=== PATIENT | male | born 1955 | race Caucasian/White ===

== ENCOUNTER → 2021-09-04 | Outpatient (CLI) | payer MEDICARE, OTHER ==
--- NOTE | 2021-09-04 14:26 | KCIC ---
EXAMINATION: MRI LEFT LOWER EXTREMITY JOINT WITHOUT INDICATIONS: Left knee pain, rupture of ACL. Hyperextended knee in February. Pain throughout, especia lly medially. TECHNIQUE: Multiplanar multisequence MRI of the left knee was obtained without contrast. COMPARISON: Left knee radiograph 08/22/2019 oh FINDINGS: MENISCI: There is a complex tear of the posterior root medial meniscus, which is blunted in appearan ce. No extrusion. The lateral meniscus is intact. LIGAMENTS: The ACL is very thickened and globular in appearance with increased in signal, most likel y mucoid degeneration. The PCL is intact. There is increased signal and small cysts in the MCL proxim ally suspicious for old injury. The LCL complex is intact. EXTENSOR MECHANISM: The quadriceps and patellar tendons are intact. Fat pads are normal. Retinacula are intact. BONES AND CARTILAGE: No acute fracture. There is marrow edema in the intercondylar notch of the femu r along the ACL attachment. Small cystic changes in the tibia at the ACL attachment. There is 7 mm la teral subluxation of the patella. There is a 1 cm deep partial-thickness cartilage defect at the lateral trochlea. There is superficial or deep partial-thickness cartilage loss along the lateral patella. Evaluation on axial images limit ed by motion artifact. There is a 3 x 4 mm full-thickness defect at the posterior weightbearing lateral femoral condyle. Thi s is superimposed on probable diffuse cartilage thinning. There is scattered partial-thickness cartilage loss in the medial femoral condyle and deep partial-th ickness cartilage loss along the medial tibial plateau. OTHER: Large joint effusion. There is subcutaneous edema along the posterior distal femur. No Louie cyst. Muscles are normal in signal. IMPRESSION: 1. Complex tear of the posterior root medial meniscus. 2. 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 3. Old MCL injury. 4. Tricompartmental cartilage loss. 5. Large joint effusion. Electronically signed by: Rosita Ruggiero MD (09/04/2021 2:24 PM) [id number]
== END ==
LOC: KCIC MRI 12:31
PROVIDERS: ATTEND Orthopaedic Surgery
DX: S83.232A Complex tear of medial meniscus, current injury, left knee, initial encounter (principal); S83.512A Sprain of anterior cruciate ligament of left knee, initial encounter; S83.012A Lateral subluxation of left patella, initial encounter; S83.412D Sprain of medial collateral ligament of left knee, subsequent encounter; M25.462 Effusion, left knee; M25.862 Other specified joint disorders, left knee; X58.XXXA Exposure to other specified factors, initial encounter; Y93.89 Activity, other specified; Y92.89 Other specified places as the place of occurrence of the external cause; Y99.8 Other external cause status
CPT/HCPCS: 73721

== ENCOUNTER → 2021-09-23 | Outpatient (CLI) | payer MEDICARE, OTHER ==
[2021-09-23 09:46] LABS: BASO # 0.1 x10^3/uL (0.0-0.2); BASO % 1 % (0-3); EOS # 0.1 x10^3/uL (0.0-0.7); EOS % 2 % (0-3); HEMATOCRIT 44.7 % (39.0-53.0); HEMOGLOBIN 15.5 g/dL (13.0-17.5); LYMPH # 1.8 x10^3/uL (1.0-4.8); LYMPH % 22 % (24-48); MEAN CORPUSCULAR HEMOGLOBIN 30 pg (25-35); MEAN CORPUSCULAR HGB CONC 35 g/dL (31-37); MEAN CORPUSCULAR VOLUME 86 fL (79-100); MONO # 0.7 x10^3/uL (0.0-1.1); MONO % 8 % (0-9); NEUT # 5.6 x10^3/uL (1.8-7.7); NEUT % 67 % (31-73); PLATELET COUNT 200 x10^3/uL (140-400); RED BLOOD COUNT 5.17 x10^6/uL (4.30-5.70); RED CELL DISTRIBUTION WIDTH 13.5 % (11.5-14.5); WHITE BLOOD COUNT 8.3 x10^3/uL (4.0-11.0)
[2021-09-23 09:57] LABS: CALCIUM 9.2 mg/dL (8.5-10.1); CREATININE 1.1 mg/dL (0.7-1.3); GFR 66.8; POTASSIUM 4.2 mmol/L (3.5-5.1)
[2021-09-23 10:00] LABS: PROTHROMBIN TIME PATIENT 13.1 SEC (11.7-14.0)
--- NOTE | 2021-09-23 12:21 | EKG ---
[facility] [address] [place] [address] Test Date: 2021-09-23 Test Time: 11:47:14 Pat Name: JAKOB CRUMP Department: Room: Gender: Nanny Caregiver: J : 1955 Requested By: JOSE M STEWART Order Number: [id number] Reading MD: Ranjan Gomez MD Measurements Intervals Carmen Rate: 61 P: 34 MT: 182 QRS: -26 QRSD: 84 T: 13 QT: 434 QTc: 443 Interpretive Statements SINUS RHYTHM MILD LAD Electronically Signed On 09-25-2021 14:13:56 CDT by Ranjan Gomez MD
--- NOTE | 2021-09-23 14:31 | RAD ---
EXAM: XR CHEST 2V 09/23/2021 12:22 PM CLINICAL INDICATION: Joint rehabilitation patient. History of hyperlipidemia. Preop for knee surgery . COMPARISON: None TECHNIQUE: PA and lateral views of the chest FINDINGS: The heart and mediastinum are normal. Lungs are well-expanded and clear. No consolidatio n, pleural effusion, or pneumothorax. Pulmonary vascularity is normal. The thoracic skeleton is int act. IMPRESSION: Normal chest radiograph. Electronically signed by: Rosita Ruggiero MD (09/23/2021 2:28 PM) [id number]
[2021-09-24 01:24] LABS: HEMOGLOBIN A1C 5.6 % (4.8-5.6)
== END ==
LOC: SURGPAT 12:07
PROVIDERS: ATTEND Orthopaedic Surgery
DX: Z01.818 Encounter for other preprocedural examination (principal); M17.12 Unilateral primary osteoarthritis, left knee; E78.5 Hyperlipidemia, unspecified
CPT/HCPCS: 36415; 71046; 80048; 82306; 83036; 85025; 85610; 85651; 85730; 87641; 93005

== ENCOUNTER 2021-10-14 05:49 | Inpatient (IN) | payer MEDICARE, OTHER ==
[2021-09-26 14:05] VITALS: BP 125/85
[2021-10-14] VITALS (10 sets, daily range): BP systolic 91–158; BP diastolic 56–92
[~2021-10-14] VITALS: Ht 172.7 cm; Wt 87.0 kg
[~2021-10-14 05:49] MED LIST: ATOR20TA58 PO; FEBU40TA PO; FERR325T14 PO; FINA5TAB4 PO; OMEG1CAP38 PO
[2021-10-14] MEDS ORDERED: TV=62ml MORPHINE 5 MG, KETOROLAC 30 MG, ROPIV, EPI INT ART ONE (06:00)
[2021-10-14] MEDS ORDERED: PROCHLORPERAZINE 10 MG/2 ML VIAL. IVP PRN (06:00)
[2021-10-14] MEDS ORDERED: MORPHINE SULFATE 2 MG/ML INJ. IVP PRN ×2 (06:00→07:30)
[2021-10-14] MEDS ORDERED: fentaNYL PF VIAL 100 MCG/2 ML VIAL IVP PRN (06:00)
[2021-10-14] MEDS ORDERED: CLINDAMYCIN 900MG PREMIX 50 ML IV PRN (06:00)
[2021-10-14] MEDS ORDERED: IV RINGERS,LACTATED 1000ML 1,000 ML IV SCH (06:00)
[2021-10-14] MEDS ORDERED: GABAPENTIN 300 MG CAPSULE. PO PRN (06:00)
[2021-10-14] MEDS ORDERED: TRANEXAMIC ACID 1,000 MG in IV NS 50ML -- 1ST BAG INJ ONE (06:00)
[2021-10-14] MEDS ORDERED: HYDROmorphone 2 MG/ML INJ. IVP PRN (06:00)
[2021-10-14] MEDS: MELOXICAM 7.5 MG TABLET PO PRN ×3 (06:40→13:56)
[2021-10-14] MEDS: ACETAMINOPHEN 500 MG TABLET PO PRN ×3 (06:41→13:56)
[2021-10-14] MEDS ORDERED: PROPOFOL 10 MG/ML (20ML) VIAL. IV ONE (07:09)
[2021-10-14] MEDS ORDERED: DEXAMETHASONE SOD PHOS 4 MG/ML VIAL ONE (07:10)
[2021-10-14] MEDS ORDERED: ONDANSETRON PF 4 MG/2 ML VIAL. ONE (07:10)
[2021-10-14] MEDS ORDERED: MIDAZOLAM HCL/PF 2 MG/2 ML VIAL. ONE (07:11)
[2021-10-14] MEDS ORDERED: fentaNYL PF VIAL 100 MCG/2 ML VIAL ONE ×2 (07:11→08:06)
[2021-10-14] MEDS ORDERED: TRANEXAMIC ACID in NS IVPB 100 ML ONE (07:27)
[2021-10-14] MEDS ORDERED: 0.9 % SODIUM CHLORIDE 10 ML DISP.SYRIN. IV PRN (07:30)
[2021-10-14] MEDS ORDERED: diphenhydrAMINE 50 MG/ML VIAL IVP PRN (07:30)
[2021-10-14] MEDS ORDERED: DEXTROSE 50% 25 GM / 50ML DISP.SYRIN. IV PRN (07:30)
[2021-10-14] MEDS ORDERED: CLINDAMYCIN 900MG PREMIX 50 ML IV SCH (07:30)
[2021-10-14] MEDS ORDERED: PHENYLEPHRINE in 0.9% NACL PF 1 MG/10 ML SYRINGE. IV ONE (07:37)
[2021-10-14] MEDS ORDERED: TRANEXAMIC ACID 1,000 MG in IV NS 50ML -- 2ND BAG INJ ONE (08:00)
--- NOTE | 2021-10-14 08:06 | HP ---
DATE OF SERVICE: 10/14/2021 ADMIT DATE: 10/14/2021 BRIEF HISTORY: The patient is a 66-year-old male who is here today with complaints of significant left knee pain. He had a recent MRI examination as well as injury to his knee. Even prior to that 12 years ago, he began having significant pain in his left knee. He has received multiple steroid injections and multiple conservative and nonconservative measures for treatment. However, he continues to have significant swelling and pain, which limits the activities of daily living. Most of his pain is to the anterior and medial aspects of the knee. No locking or instability episodes but pain is unremitting in spite of treatments. REVIEW OF SYSTEMS: Unremarkable other than current musculoskeletal complaints. MEDICAL HISTORY: Hyperlipidemia, history of UTI and renal lithiasis, gout as well as elevated PSA. SURGICAL HISTORY: Removal of renal stones, tonsillectomy, shoulder rotator cuff repair in 2017, sinus surgery in 2020, left leg vein stripping x 2. FAMILY HISTORY: Remarkable for diabetes. SOCIAL HISTORY: The patient has never used any tobacco. Alcohol use is also negative. MEDICATIONS: [place] 3s, finasteride, atorvastatin, Uloric. He stopped taking allopurinol as well as Lipitor. MEDICATION ALLERGIES: PENICILLIN. PHYSICAL EXAMINATION: GENERAL: He is 69 inches tall, 196 pounds. MUSCULOSKELTAL: He has no significant effusion today. He does have some laxity in the anterior plane, but no instability in the anterior plane. No varus or valgus instability. His pain is with palpation both medial and lateral joint lines, more medial than lateral. Positive Apley's test over to both compartments. A lot of apprehension of the patellofemoral joint. Range of motion 0-125 degrees of flexion, pain medially throughout the arc of motion and anteriorly throughout the arc of motion, but the proper tracking of the patellofemoral joint is noted. No atrophy of musculature, left versus right. Distal neurovascular status is fully intact. HEENT: Within normal limits. HEART: Regular rate and rhythm. ABDOMEN: Soft and nontender. LUNGS: Lung fitch are clear to auscultation in all fitch. IMPRESSION: 1. Degenerative joint disease. 2. Chronic pain, left knee. PLAN: At this time, we have talked with him again today about the risks, complications as well as benefits and expectations of surgery, postoperative protocol and followup. He wishes to proceed. Anesthesia will discuss with him the anesthetic and pre and postoperative areas as well. We will proceed as soon as they are talking with him. MICKY/CHELLE DR: Riley TID: [id number]
[2021-10-14] MEDS ORDERED: SEVOFLURANE 61 TO 120 MINUTES. IH ONE (08:35)
--- NOTE | 2021-10-14 08:50 | PDOC4 ---
OPERATIVE NOTE Date: Date: October 14, 2021 Pre-Op Diagnosis: Degenerative joint disease left knee Post-Op Diagnosis: Same Procedure Performed: Left total knee arthroplasty Surgeon: Desmond Anesthesia Type: General Blood Loss: 50 cc Specimans Obtained: Bone and soft tissue left knee Findings: Size 6 left cruciate retaining femur size 5 tibial TriTanium insert 32 patella and a size 11 tibial polyethylene insert noncemented femur Complications: None Operative Note: Patient taken operative suite given a general anesthetic left lower extremities and prepped and draped in a sterile fashion after exsanguination tourniquet was inflated incision was made through skin is subcutaneous tissues down to the extensor mechanism superficial bleeding was coagulated using a Bovie knife medial parapatellar incision was then made. Opening up the femur there were noted to be degenerative changes and grade 4 changes on the medial femoral condyle at full extension at approximately 30 to 50 degrees of flexion as well as 90 degrees of flexion and also the lateral condyle and the femoral sulcus was also significantly devoid of chondral surface. Drill was placed in the distal femur and the IM guide was then placed after the appropriate setting was placed on the distal femur the anterior femur was attached to the guide. And the distal cut was then subsequently made this was had multiple passes to make sure this was a good flush cut. This was all then removed the sizing guide was placed and proper rotation was marked along the area of the condylar axis. The drill holes were made through the guide. This was then all subsequently removed and the sizing guide revealed this to be a size 5 therefore the size 5 femoral guide was then affixed to the distal femoral cut held with pins medially and laterally in the anterior posterior and the chamfer cuts were then made. The trial was then placed and noted be secure. This was removed. The medial lateral meniscal remnants were removed along with the ACL however the PCL remained intact after appropriate retraction medially laterally and posteriorly external tibial guide was placed in appropriate position and orientation checked multiple times in the proximal tibia was cut. After this was cut the trial components were placed to stick through range of motion size 11 was most appropriate for the tibial insertion so this could be stable in both flexion extension and equal gapped in flexion and extension. No instability was noted in the varus valgus or AP plane proper tracking of patellofemoral joint was noted therefore this was marked for rotation on the tibial side of the joint held with pins. The drill was placed to the femur and after this was drilled through this was noted be stable. The drill and keel are placed to the appropriate depth at this point. All trials were removed from the knee. This was then thoroughly irrigated. Following this the tibia was impacted noted to be good and secure impacted multiple times the same was done on the femur this was noted to be excellent security parisi. The patella was then clamped and the component was noted to be stable and this was noted on all the 3 portions of the insertion sites in the femur tibia and patella. This was trialed 11 was noted to be the most appropriate therefore the trials remove the actual polyethylene was placed and the tibial component noted be secured. This could not be removed. The this was and thoroughly irrigated. This was then irrigated with Betadine and then further irrigated again to remove that from the joint itself. Following this the medial parapatellar was partially closed and the tourniquet was deflated no excessive bleeding was noted. Superficial bleeding was already done prior to closure as well as the capsular structures. After closure of this running suture this was reinforced with #1 Ethibond at 4 different points along the area of the medial retinacular incision. This was then taken through range of motion noted to have excellent stability noted of excellent extension and flexion gaps is proper was proper tracking of the patellofemoral joint as well. The superficial tissues and skin was reapproximated sterile dressing was applied after local was placed within the capsular region as well as the peripheral aspects of the knee. Patient was then taken from the operative bed to the postoperative bed taken to the PACU in stable condition JOSE M STEWART Jr. DO October 14, 2021 08:50
[2021-10-14] MEDS: fentaNYL PF VIAL 100 MCG/2 ML VIAL IVP PRN ×4 (09:27→13:55)
[2021-10-14] MEDS: SENNOSIDES/DOCUSATE 8.6/50MG TABLET. PO SCH (11:25)
[2021-10-14] MEDS: ONDANSETRON PF 4 MG/2 ML VIAL. IVP SCH ×2 (12:00→18:00)
[2021-10-14] MEDS: ONDANSETRON ODT 4 MG TAB.RAPDIS. PO SCH ×2 (12:00→18:00)
--- NOTE | 2021-10-14 13:06 | RAD ---
XR KNEE_LT 1-2 VIEWS History: Reason: s/p TKA / Spl. Instructions: / History: Technique: 2 views left knee Comparison: August 21, 2021 Findings: Interval left total knee arthroplasty. Expected postoperative findings with subcutaneous gas. No disl ocation. No acute fracture. Vascular calcifications. Impression: 1. Interval left total knee arthroplasty. No immediate hardware complications. Electronically signed by: Tony Adam DO (10/14/2021 1:03 PM) [id number]
--- NOTE | 2021-10-14 13:53 | NUR ---
Pt was admitted to floor at 1040 from PACU in bed. He denies N/V, rates his pain at a 5/10 upon admit. Refused anything for pain. Medication that were non administered prior to 1000, pt was not on floor at that time. He was in OR or PACU
[2021-10-14] MEDS: IV RINGERS,LACTATED 1000ML 1,000 ML IV SCH ×2 (14:41→23:20)
[2021-10-14] MEDS: CLINDAMYCIN 900MG PREMIX 50 ML IV SCH ×2 (14:42→21:52)
[2021-10-14] MEDS: FEBUXOSTAT 40 MG TABLET PO SCH (15:59)
[2021-10-14] MEDS: OMEGA-3 FATTY ACIDS/FISH OIL 1,000 MG CAPSULE. PO SCH (16:00)
[2021-10-14] MEDS: FERROUS SULFATE 325 MG TABLET. PO SCH (16:00)
[2021-10-14] MEDS: FINASTERIDE 5 MG TABLET. PO SCH (16:00)
--- NOTE | 2021-10-14 17:48 | PDOC1 ---
History and Physical Date of Service: DOS: DATE: 10/14/21 TIME: 17:43 Chief Complaint: Chief Complain: Left knee pain History of Present Illness: HPI: 66-year-old male with past medical history of dyslipidemia, nephrolithiasis, gout who comes to this facility for an elective left TKA. Patient failed multiple conservative measures which included steroid injections and pain management but continues have significant swelling and pain which limits his daily activities. Past Medical/Surgical History: PMH/PSH: Past medical history significant for dyslipidemia, history of UTI, nephrolithiasis, gout, degenerative joint disease SURGICAL HISTORY: Removal of renal stones, tonsillectomy, shoulder rotator cuff repair in 2018, sinus surgery in 2020, left leg vein stripping x 2. Allergies: Allergies: Coded Allergies: Penicillins (Verified Allergy, Intermediate, Swelling, 10/14/21) benzalkonium chloride (Verified Allergy, Intermediate, Rash, 10/14/21) latex (Verified Adverse Reaction, Intermediate, Rash, 10/14/21) Family History: Family History: Reviewed and significant for diabetes Social History: Social History: Denies any alcohol, tobacco or drug abuse. Current Medications: Current Medications Current Medications Fentanyl Citrate (Fentanyl 2ml Vial) 25 mcg PRN Q5MIN PRN IVP MILD PAIN 1-3; Start 10/14/21 at 06:00; Stop 10/14/21 at 20:00 Fentanyl Citrate (Fentanyl 2ml Vial) 50 mcg PRN Q5MIN PRN IVP MODERATE PAIN 4-6 Last administered on 10/14/21at 09:44; Start 10/14/21 at 06:00; Stop 10/14/21 at 20:00 Morphine Sulfate (Morphine Sulfate) 1 mg PRN Q10MIN PRN IVP SEVERE PAIN 7-10; Start 10/14/21 at 06:00; Stop 10/14/21 at 20:00 Ringer's Solution 1,000 ml @ 30 mls/hr Q24H IV Last administered on 10/14/21at 06:42; Start 10/14/21 at 06:00; Stop 10/14/21 at 17:59 Hydromorphone HCl (Dilaudid) 0.5 mg PRN Q10MIN PRN IVP SEVERE PAIN 7-10, 2nd CHOICE; Start 10/14/21 at 06:00; Stop 10/14/21 at 20:00 Prochlorperazine Edisylate (Compazine) 5 mg PACU PRN PRN IVP NAUSEA, MRX1; Start 10/14/21 at 06:00; Stop 10/14/21 at 20:00 Morphine Sulfate 5 mg/Ketorolac Tromethamine 30 mg/Ropivacaine 60 ml/Epinephrine HCl 0.5 mg/ Miscellaneous 63 ml @ 63 mls/hr 1X PERIOP ONCE INT ART ; Start 10/14/21 at 06:00; Stop 10/14/21 at 06:59; Status DC Meloxicam (Mobic) 15 mg 1X PREOP PRN PO PRIOR TO PROCEDURE Last administered on 10/14/21at 06:40; Start 10/14/21 at 06:00; Stop 10/14/21 at 18:00 Gabapentin (Neurontin) 600 mg 1X PREOP PRN PO PRIOR TO PROCEDURE Last administered on 10/14/21at 06:40; Start 10/14/21 at 06:00; Stop 10/14/21 at 18:00 Acetaminophen (Tylenol) 1,000 mg 1X PREOP PRN PO PRIOR TO PROCEDURE Last administered on 10/14/21at 06:41; Start 10/14/21 at 06:00; Stop 10/14/21 at 18:00 Clindamycin Phosphate 50 ml @ 100 mls/hr 1X PREOP PRN IV PRIOR TO PROCEDURE; Start 10/14/21 at 06:00; Stop 10/14/21 at 18:00 Tranexamic Acid 50 ml @ 50 mls/hr 1X PERIOP ONCE INJ ; Start 10/14/21 at 06:00; Stop 10/14/21 at 06:59; Status DC Tranexamic Acid 50 ml @ 50 mls/hr 1X PERIOP ONCE INJ ; Start 10/14/21 at 08:00; Stop 10/14/21 at 08:59; Status DC Propofol (Diprivan) 200 mg STK-MED ONCE IV ; Start 10/14/21 at 07:09; Stop 10/14 at 07:10; Status DC Dexamethasone Sodium Phosphate (Decadron) 4 mg STK-MED ONCE .ROUTE ; Start 10/14/21 at 07:10; Stop 10/14/21 at 07:10; Status DC Ondansetron HCl (Zofran) 4 mg STK-MED ONCE .ROUTE ; Start 10/14/21 at 07:10; Stop 10/14/21 at 07:10; Status DC Midazolam HCl (Versed) 2 mg STK-MED ONCE .ROUTE ; Start 10/14/21 at 07:11; Stop 10/14/21 at 07:12; Status DC Fentanyl Citrate (Fentanyl 2ml Vial) 100 mcg STK-MED ONCE .ROUTE ; Start 10/14/21 at 07:11; Stop 10/14/21 at 07:12; Status DC Morphine Sulfate (Morphine Sulfate) 2 mg PRN Q1HR PRN IVP PAIN; Start 10/14/21 at 07:30 Diphenhydramine HCl (Benadryl) 25 mg PRN Q6HRS PRN IVP ITCHING; Start 10/14/21 at 07:30 Senna/Docusate Sodium (Senna Plus) 1 tab DAILY PO Last administered on 10/14/21at 11:25; Start 10/14/21 at 09:00 Clindamycin Phosphate 50 ml @ 100 mls/hr Q6H IV Last administered on 10/14/21at 07:29; Start 10/14/21 at 07:30; Stop 10/14/21 at 10:48; Status DC Magnesium Hydroxide (Milk Of Magnesia) 2,400 mg 1X PRN PRN PO CONSTIPATION; Start 10/15/21 at 06:00; Stop 10/16/21 at 05:59 Bisacodyl (Dulcolax Supp) 10 mg 1X PRN PRN VA CONSTIPATION; Start 10/15/21 at 16:00; Stop 10/16/21 at 15:59 Sodium Chloride (Normal Saline Flush) 10 ml QSHIFT PRN IV AFTER MEDS AND BLOOD DRAWS; Start 10/14/21 at 07:30 Acetaminophen (Tylenol) 1,000 mg Q6H PO ; Start 10/15/21 at 12:00 Ondansetron HCl (Zofran) 4 mg Q6HRS IVP ; Start 10/14/21 at 12:00; Stop 10/15/21 at 06:01 Ondansetron HCl (Zofran Odt) 4 mg Q6HRS PO ; Start 10/14/21 at 12:00; Stop 10/15/21 at 06:01 Oxycodone HCl (Roxicodone) 5 mg PRN Q4HRS PRN PO Pain score 4-6; Start 10/14/21 at 07:30 Dextrose (Dextrose 50%-Water Syringe) 12.5 gm PRN Q15MIN PRN IV SEE COMMENTS; Start 10/14/21 at 07:30 Aspirin (Freedom Aspirin) 325 mg BID PO ; Start 10/14/21 at 18:00 Tranexamic Acid 100 ml @ As Directed STK-MED ONCE .ROUTE ; Start 10/14/21 at 07:27; Stop 10/14/21 at 07:27; Status DC Phenylephrine HCl (PHENYLEPHRINE in 0.9% NACL PF) 1 mg STK-MED ONCE IV ; Start 10/14/21 at 07:37; Stop 10/14/21 at 07:37; Status DC Fentanyl Citrate (Fentanyl 2ml Vial) 100 mcg STK-MED ONCE .ROUTE ; Start 10/14/21 at 08:06; Stop 10/14/21 at 08:07; Status DC Sevoflurane (Ultane) 60 ml STK-MED ONCE IH ; Start 10/14/21 at 08:35; Stop 10/14/21 at 08:35; Status DC Ringer's Solution 1,000 ml @ 75 mls/hr [id number] IV Last administered on 10/14/21at 14:41; Start 10/14/21 at 10:00 Clindamycin Phosphate 50 ml @ 100 mls/hr Q6H IV Last administered on 10/14/21at 14:42; Start 10/14/21 at 13:30; Stop 10/15/21 at 01:59 Atorvastatin Calcium (Lipitor) 20 mg QHS PO ; Start 10/14/21 at 21:00; Stop 10/14/21 at 15:57; Status DC Febuxostat (Uloric) 40 mg DAILY PO Last administered on 10/14/21at 15:59; Start 10/14/21 at 15:00 Ferrous Sulfate (Feosol) 325 mg DAILY PO Last administered on 10/14/21at 16:00; Start 10/14/21 at 15:00 Finasteride (Proscar) 5 mg DAILY PO Last administered on 10/14/21at 16:00; Start 10/14/21 at 15:00 Fish Oil (Fish Oil) 1,000 mg DAILY PO Last administered on 10/14/21at 16:00; Start 10/14/21 at 15:00 Atorvastatin Calcium (Lipitor) 20 mg DAILY PO ; Start 10/15/21 at 09:00 Active Scripts Active Reported Ferrous Sulfate 325 Mg Tablet 325 Mg PO DAILY Atorvastatin Calcium 20 Mg Tablet 20 Mg PO HS Finasteride 5 Mg Tablet 5 Mg PO DAILY Bolivar 3 Fish Oil Softgel (Bolivar-3 Fatty Acids/Fish Oil) 1 Each Capsule. 1 Each PO DAILY Uloric (Febuxostat) 40 Mg Tablet 40 Mg PO DAILY ROS: Review of Systems Review of System REVIEW OF SYSTEMS: GENERAL: Denies weakness SKIN: No bruising, hair changes or rashes. EYES: No blurred, double or loss of vision. NOSE AND THROAT: No history of nosebleeds, hoarseness or sore throat. HEART: No history of palpitations, chest pain or shortness of breath on exertion. LUNGS: Denies cough, hemoptysis, wheezing or shortness of breath. GASTROINTESTINAL: Denies changes in appetite, nausea, vomiting, diarrhea or constipation. GENITOURINARY: No history of frequency, urgency, hesitancy or nocturia. NEUROLOGIC: Denies history of numbness, tingling, or tremor. PSYCHIATRIC: No history of panic, anxiety or depression. ENDOCRINE: No history of heat or cold intolerance, polyuria or polydipsia. EXTREMITIES: Positive for left knee pain Physical Exam: Vital Signs: Vital Signs Date Time Temp Pulse Resp B/P (MAP) Pulse Ox O2 Delivery O2 Flow Rate FiO2 10/14/21 15:00 97.8 69 20 105/61 (76) 95 Room Air 97.8 10/14/21 09:27 10.0 Physcial Exam: General: Well developed, well nourished, no acute distress, well appearing HEENT: Pupils equally round and reactive to light, EOMI, no discharge, normal conjunctiva Neck: Supple, no nuchal rigidity, no JVD, trachea midline, no tenderness Cardiac: RRR, no murmurs, no gallops, no rubs Chest/Lungs: CTAB, no wheeze, no rhonchi, no crackles Abdomen: soft, non-distended, no guarding, no peritoneal signs, non-tender Back: No tenderness Extremities: no edema, pulses intact, non-tender,capillary refill <3 sec bilateral upper and lower extremities, Neuro: Alert and oriented x 4, no focal deficits, normal speech Labs: Labs: Laboratory Tests Test 10/14/21 06:15 POC SARS CoV-2 Antigen Negative (NEGATIVE) Laboratory Tests Test 10/14/21 06:15 POC SARS CoV-2 Antigen Negative (NEGATIVE) Images: Images PROCEDURE: KNEE LEFT 2V XR KNEE_LT 1-2 VIEWS History: Reason: s/p TKA / Spl. Instructions: / History: Technique: 2 views left knee Comparison: August 21, 2021 Findings: Interval left total knee arthroplasty. Expected postoperative findings with subcutaneous gas. No dislocation. No acute fracture. Vascular calcifications. Impression: 1. Interval left total knee arthroplasty. No immediate hardware complications. Assessment/Plan Assessment/Plan Degenerative joint disease status post left TKA History of dyslipidemia History of BPH History of gout Admit to hospitalist for further management PT OT evaluation Resume atorvastatin Resume finasteride for BPH Resume febuxostat for gout Aspirin 325 mg twice daily for DVT prophylaxis Cardiac diet CODE STATUS full Discussed with RN and SW Disposition pending PT OT evaluation DPOA: Justifications for Admission Other Justification CY TELLES MD October 14, 2021 17:48
[2021-10-14] MEDS: ASPIRIN 325 MG TABLET PO SCH ×2 (17:59→21:52)
[2021-10-14] MEDS ORDERED: ATORVASTATIN CALCIUM 20 MG TABLET PO SCH (21:00)
[2021-10-14] MEDS: oxyCODONE IR 5 MG TABLET PO PRN (21:56)
[2021-10-15 03:00] VITALS: BP 128/70
[2021-10-15] MEDS: oxyCODONE IR 5 MG TABLET PO PRN ×3 (03:18→12:36)
[2021-10-15] MEDS: CLINDAMYCIN 900MG PREMIX 50 ML IV SCH (03:45)
[2021-10-15] MEDS: ONDANSETRON ODT 4 MG TAB.RAPDIS. PO SCH ×2 (05:55)
[2021-10-15] MEDS: ONDANSETRON PF 4 MG/2 ML VIAL. IVP SCH ×2 (05:55)
[2021-10-15] MEDS ORDERED: MAGNESIUM HYDROXIDE 2,400 MG/30 ML ORAL.SUSP. PO PRN (06:00)
[2021-10-15 07:00] VITALS: BP 108/72
[2021-10-15 08:23] LABS: HEMATOCRIT 39.5 % (39.0-53.0); HEMOGLOBIN 13.3 g/dL (13.0-17.5); RED BLOOD COUNT 4.45 x10^6/uL (4.30-5.70); RED CELL DISTRIBUTION WIDTH 13.4 % (11.5-14.5); WHITE BLOOD COUNT 17.1 x10^3/uL (4.0-11.0)
[2021-10-15 08:29] LABS: CALCIUM 8.3 mg/dL (8.5-10.1); GFR 74.5; POTASSIUM 3.8 mmol/L (3.5-5.1)
--- NOTE | 2021-10-15 08:29 | PDOC ---
PROGRESS NOTES Date of Service DATE: 10/15/21 TIME: 08:20 Subjective Subjective POD #1 s/p L TKA Pt was seen and examined this AM. Reports pain 3/10. Complains of discomfort to quadriceps region. Tolerating PO intake post-op. Voiding without difficulty. 3500 on IS. Denies CP/SOA/Abd pain. No acute events overnight. Objective Vital Signs Vital Signs Date Time Temp Pulse Resp B/P (MAP) Pulse Ox O2 Delivery O2 Flow Rate FiO2 10/15/21 07:58 Room Air 10/15/21 03:50 20 10/15/21 03:00 74 128/70 (89) 94 10/14/21 23:00 98.8 98.8 10/14/21 09:27 10.0 Physical Exam Orthopedic examination L knee: Dressings clean, dry, intact. No drainage or discharge. Compartments soft and distensible. Calf non-tender. Negative Shefali's sing. Wiggles toes. EHL/FHL intact. Plantarflexion/dorsiflexion intact. Sensation to light touch intact throughout all dermatomes. Cap refill brisk. LLE warm and perfused. No evidence of thrombus. Labs Laboratory Tests Test 10/14/21 06:15 POC SARS CoV-2 Antigen Negative (NEGATIVE) Assessment Assessment 66 y/o M primary OA L knee s/p L primary TKA 10/14 - [facility]mond * WBAT LLE * Pain control (DC IV pain meds this morning) * DVT ppx (ASA 325mg BID) * Post-op abx (Clindamycin) * VSS stable this AM * AM labs (CBC, BMP) pending * ICE operative knee prn * Maintain surgical dressing L knee * PT/OT for mobilization, gait training and fall prevention * CM for discharge planning; pt lives at home with in [facility], is [employer]. reports strong family support. Will have pt work/mobilize with therapy today. Anticipate discharge home with home health services and family later this afternoon. * Follow up with orthopedic clinic in 2 weeks. Call to schedule prior to d/c [phone]. Justicifation of Admission Dx: Justifications for Admission: Justification of Admission Dx: Yes FOUZIA MORGAN October 15, 2021 08:29
[2021-10-15] MEDS ORDERED: OXYC1TAB15 PO (08:34)
[2021-10-15] MEDS ORDERED: SENN-209 PO (08:34)
[2021-10-15] MEDS ORDERED: ASPI325T8 PO (08:34)
--- NOTE | 2021-10-15 08:36 | SNU/HH DC ---
DISCHARGE WITH HOME HEALTH DISCHARGE INFORMATION: Discharge Date: October 15, 2021 Condition on Discharge: Stable CODE STATUS: Code Status: Full HOME HEALTH: Face to Face: I certify this patient is under my care and that I, or a nurse practitioner or boy oconnell's legislative assistant working with me, had a face to face encounter that meets the physician face to face encounter requirements with this patient on []. Medical Complications: S/P Joint Replacement Correction For: Assess & Educate Safety, Assess/Skilled Observatio, Medication Management, bariatric nurse For Eval/Treatment: Yes Physical Therapy For: Evalulation/Treatment Occupational Therapy For: Evaluation/Treatment Pt Meets Homebound Status: Unsteady balance w/ amb,, Extreme weakness w/ amb., Frequent falls w/ injury, Limited distance walking POST DISCHARGE ORDERS: Activity Instructions for Disc: Activity as tolerated Weight Bearing Status after Di: As tolerated DIET AFTER DISCHARGE: Cardiac FOLLOW-UP: Follow up with: PCP within 2 weeks of discharge Follow Up With: Orthopedic surgery within 7 to 10 days CERTIFICATION STATEMENT: Certification Statement: Certification Statement: Based on the above finding, I certify that this patient is confined to the home and needs intermittent fpc care, physical therapy and/or speech therapy, or continues to need occupational therapy.~ This patient is under my care, and I have initiated the establishment of the plan of care.~ This patient will be followed by myself or a community physician who will periodically review the plan of care. Home Meds Active Scripts Sennosides/Docusate Sodium (Stool Softener-Stimulant Lax) 1 Each Tablet, 1 TAB PO DAILY for constipation for 10 Days, #10 TAB Prov:CY TELLES MD 10/15/21 Oxycodone/Apap 5-325 (PERCOCET 5-325 MG TABLET ) 1 Each Tablet, 1 TAB PO PRN Q6HRS PRN for PAIN for 3 Days, #12 TAB 0 Refills Prov:CY TELLES MD 10/15/21 Aspirin (ASPIRIN) 325 Mg Tablet, 325 MG PO BID for DVT prophylaxis for 30 Days, #60 TAB Prov:CY TELLES MD 10/15/21 Reported Medications Ferrous Sulfate (FERROUS SULFATE) 325 Mg Tablet, 325 MG PO DAILY for iron supplement, TAB 09/26/21 Atorvastatin Calcium (ATORVASTATIN CALCIUM) 20 Mg Tablet, 20 MG PO HS for FOR CHOLESTEROL, #30 TAB 0 Refills 09/26/21 Finasteride (FINASTERIDE) 5 Mg Tablet, 5 MG PO DAILY for prostate issues, TAB 09/26/21 [place]-3 Fatty Acids/Fish Oil (OMEGA 3 FISH OIL SOFTGEL) 1 Each Capsule.dr, 1 EACH PO DAILY for supplement, CAP 09/26/21 Febuxostat (ULORIC) 40 Mg Tablet, 40 MG PO DAILY for prevent gout, TAB 09/26/21 CY TELLES MD October 15, 2021 08:36
[2021-10-15] MEDS: ASPIRIN 325 MG TABLET PO SCH (08:42)
[2021-10-15] MEDS: FERROUS SULFATE 325 MG TABLET. PO SCH (08:42)
[2021-10-15] MEDS: FINASTERIDE 5 MG TABLET. PO SCH (08:43)
[2021-10-15] MEDS: FEBUXOSTAT 40 MG TABLET PO SCH (08:43)
[2021-10-15] MEDS: OMEGA-3 FATTY ACIDS/FISH OIL 1,000 MG CAPSULE. PO SCH (08:43)
[2021-10-15] MEDS: SENNOSIDES/DOCUSATE 8.6/50MG TABLET. PO SCH (08:43)
[2021-10-15] MEDS ORDERED: ATORVASTATIN CALCIUM 20 MG TABLET PO SCH (09:00)
[2021-10-15 11:00] VITALS: BP 122/67
[2021-10-15] MEDS ORDERED: ACETAMINOPHEN 500 MG TABLET PO SCH (12:00)
[2021-10-15] MEDS ORDERED: BISACODYL 10 MG SUPP.RECT. PR PRN (16:00)
--- NOTE | 2021-10-15 17:10 | PATHOLOGY ---
[facility] Accession Number: [id number] . 01 Material submitted: . knee - KNEE BONE AND TISSUE, LEFT . 01 Clinical history: . OA . 02 Diagnosis: Segments of bone and soft tissue, left total knee arthroplasty: - Degenerative arthritis. ([facility]; 10/15/2021) QMS 10/15/2021 1355 Local . 02 Electronically signed: . Mani Strong MD, Pathologist NPI- [id number] . 01 Gross description: . The specimen is received in formalin, labeled "Partha Lee, left knee bone and tissue". Received are multiple segments of bone, including the tibial plateau, admixed with soft tissue measuring 10.5 x 9.2 x 2.1 cm in aggregate dimensions. Meniscus is present. The articular surfaces are smooth to granular in appearance with evidence of eburnation. The specimen is submitted representatively in cassette A1, following decalcification. ([facility]; 10/14/2021) QAC/QAC 10/15/2021 1353 Local . 02 Pathologist provided ICD-10: M17.12 . 02 CPT . 257651, [id number] Specimen Comment: A courtesy copy of this report has been sent to [phone], [phone] Specimen Comment: [id number] Specimen Comment: Report sent to / DR VILLATORO Specimen Comment: A duplicate report has been generated due to demographic updates. Performed at: 01 [facility] [address], [place] [id number] MD Sajan Seth MD Phone: [phone] Performed at: 02 [facility] [address] [place], [place] [id number] MD Mani Strong MD Phone: [phone]
--- NOTE | 2021-10-15 17:29 | NUR ---
reviewed discharge instructions with patient and . reviewed new medications especially aspirin side effects and length of time to take bid for 30 days and stool softener and pain medication.
--- NOTE | 2021-10-19 15:21 | PDOC3 ---
[facility]-Discharge Summary Date of Admission: Date of Admission: October 14, 2021 Date of Discharge: Date of Discharge: October 15, 2021 Discharge Diagnosis: Discharge Diagnosis: Degenerative joint disease status post left TKA History of dyslipidemia History of BPH History of gout Hospital Course: Hospital Course: 66-year-old male with past medical history of dyslipidemia, nephrolithiasis, gout who comes to this facility for an elective left TKA. Patient failed multiple conservative measures which included steroid injections and pain management but continues have significant swelling and pain which limits his daily activities. Patient underwent left TKA with orthopedic surgery. And tolerated procedure well. By day of discharge patient was tolerating diet and pain was well controlled. Patient will be discharged with home with home health. Disposition: Disposition/Orders: D/C to Home w/ HH Activity: Activity: Resume previous activity Diet: Diet: Cardiac Medications: Home Meds Active Scripts Sennosides/Docusate Sodium (Stool Softener-Stimulant Lax) 1 Each Tablet, 1 TAB PO DAILY for constipation for 10 Days, #10 TAB Prov:CY TELLES MD 10/15/21 Oxycodone/Apap 5-325 (PERCOCET 5-325 MG TABLET ) 1 Each Tablet, 1 TAB PO PRN Q6HRS PRN for PAIN for 3 Days, #12 TAB 0 Refills Prov:CY TELLES MD 10/15/21 Aspirin (ASPIRIN) 325 Mg Tablet, 325 MG PO BID for DVT prophylaxis for 30 Days, #60 TAB Prov:CY TELLES MD 10/15/21 Reported Medications Ferrous Sulfate (FERROUS SULFATE) 325 Mg Tablet, 325 MG PO DAILY for iron supplement, TAB 09/26/21 Atorvastatin Calcium (ATORVASTATIN CALCIUM) 20 Mg Tablet, 20 MG PO HS for FOR CHOLESTEROL, #30 TAB 0 Refills 09/26/21 Finasteride (FINASTERIDE) 5 Mg Tablet, 5 MG PO DAILY for prostate issues, TAB 09/26/21 [place]-3 Fatty Acids/Fish Oil (OMEGA 3 FISH OIL SOFTGEL) 1 Each Capsule.dr, 1 EACH PO DAILY for supplement, CAP 09/26/21 Febuxostat (ULORIC) 40 Mg Tablet, 40 MG PO DAILY for prevent gout, TAB 09/26/21 Scheduled Aspirin (Aspirin), 325 MG PO BID Atorvastatin Calcium (Atorvastatin Calcium), 20 MG PO HS, (Reported) Febuxostat (Uloric), 40 MG PO DAILY, (Reported) Ferrous Sulfate (Ferrous Sulfate), 325 MG PO DAILY, (Reported) Finasteride (Finasteride), 5 MG PO DAILY, (Reported) [place]-3 Fatty Acids/Fish Oil ([place] 3 Fish Oil Softgel), 1 EACH PO DAILY, (Reported) Sennosides/Docusate Sodium (Stool Softener-Stimulant Lax), 1 TAB PO DAILY Scheduled PRN Oxycodone/Apap 5-325 (Percocet 5-325 Mg Tablet ), 1 TAB PO PRN Q6HRS PRN for PAIN Total Time: Total Time: Total time spent was 32 minutes in preparing scripts, discharge planning with SWI and RN and preparing this discharge summary Patient seen and examined on day of discharge. No acute abnormal findings. Justicifation of Admission Dx: Justifications for Admission: Justification of Admission Dx: Yes CY TELLES MD October 19, 2021 15:21
== END 2021-10-15 16:30 | disposition home health service (06) | DRG 470 ==
LOC: SURG 05:49 → 4 NORTH 07:20
PROVIDERS: ADMIT Orthopaedic Surgery; ATTEND Orthopaedic Surgery
PROC: 0SRD0JZ Replacement of Left Knee Joint with Synthetic Substitute, Open Approach (ICD-10-PCS; principal; 2021-10-14 07:30)
DX: M17.12 Unilateral primary osteoarthritis, left knee (principal); E78.5 Hyperlipidemia, unspecified; G89.29 Other chronic pain; M10.9 Gout, unspecified; N40.0 Benign prostatic hyperplasia without lower urinary tract symptoms; Z83.3 Family history of diabetes mellitus; Z87.440 Personal history of urinary (tract) infections; Z87.442 Personal history of urinary calculi; Z88.8 Allergy status to other drugs, medicaments and biological substances; Z91.040 Latex allergy status; Z20.822 Contact with and (suspected) exposure to COVID-19
CPT/HCPCS: 36415; 73560; 80048; 85027; 86850; 86900; 86901; 88305; 88311; A4213; A4364; A4930; A6253; A6258; A6450; A6550; C1776; J0171; J1100; J1885; J2250; J2270; J2370; J2405; J2704; J2795; J3010; J3490; J7120; 97116-GP; 97150-GP; 97530-GP; 97535-GO; G0378